=== PATIENT | female | born 1985 | race American Indian/Alaskan Native ===

== ENCOUNTER 2016-07-27 | Emergency (ER) | payer SELFPAY ==
[2016-07-27 00:01] VITALS: BMI 27.4
[2016-07-27 00:37] VITALS: RESP 18; TEMP 98.4
--- NOTE | 2016-07-27 01:42 | CT ---
EXAM: CT Head Without Intravenous Contrast CLINICAL HISTORY: 30 years old, female; Pain; Headache; Headache not specified TECHNIQUE: Axial computed tomography images of the head/brain without intravenous contrast. This CT exam was performed using one or more of the following dose reduction techniques: automated exposure control, adjustment of the mA and/or kV according to patient size, and/or use of iterative reconstruction technique. COMPARISON: No relevant prior studies available. FINDINGS: Brain: No intracranial hemorrhage. No mass. No edema. Ventricles: No hydrocephalus. Bones/joints: No acute fracture. Soft tissues: RIGHT parietal soft tissue swelling/irregularity. Sinuses: No acute sinusitis. Mastoid air cells: No mastoid effusion. Orbits: Unremarkable as visualized. Nasopharynx: Mildly prominent adenoids. IMPRESSION: 1. No intracranial hemorrhage. 2. Incidental/non-acute findings are described above.
--- NOTE | 2016-07-27 02:34 | ED PDOC ---
Arrival/HPI - General Historian: Patient <Gogo Carranza - Last Filed: 07/27/16 02:19> <Jhonatan Pabon - Last Filed: 07/27/16 04:14> - General Chief Complaint: Trauma Time Seen by Provider: 07/27/16 00:28 - History of Present Illness Narrative History of Present Illness (Text): 07/27/16 03:56 30-year-old female presents today with head injury and laceration to the scalp status post fall. Patient admits to having some drinks today states she tripped and fell and hit the back of her head. She is unsure if there was loss of consciousness. She denies chest pain or shortness of breath. Denies neck or back pain. No abdominal pain. Denies numbness weakness or tingling in the extremities. Denies any pain in the ankles or knees. No vomiting or diarrhea. Unsure of her last tetanus shot. No other complaints (Gogo Carranza) Past Medical History - Provider Review Nursing Documentation Reviewed: Yes - Travel History Have you recently traveled outside [place] w/in the past 3 mons?: No - Infectious Disease Hx of Infectious Diseases: None - Tetanus Immunization Tetanus Immunization: Unknown - Psychiatric Hx Psychophysiologic Disorder: No Hx Anxiety: No Hx Bipolar Disorder: No Hx Depression: No Hx Emotional Abuse: No Hx Hallucinations: No Hx Panic Disorder: No Hx Post Traumatic Stress Disorder: No Hx Psychosis: No Hx Physical Abuse: No Hx Schizophrenia: No Hx Sexual Abuse: No Hx Substance Use: Yes - Surgical History Hx Dilation and Curettage: Yes - Anesthesia Hx Anesthesia: Yes Hx Anesthesia Reactions: No Hx Malignant Hyperthermia: No - Suicidal Assessment Feels Threatened In Home Enviroment: No <Gogo Carranza - Last Filed: 07/27/16 02:19> Family/Social History - Physician Review Nursing Documentation Reviewed: Yes Family/Social History: Unknown Family HX Smoking Status: Heavy Smoker > 10 Cigarettes Daily Hx Alcohol Use: Yes Frequency of alcohol use: Few days per week Hx Substance Use: Yes Substance used: marijuana Hx Substance Use Treatment: No <Gogo Carranza - Last Filed: 07/27/16 02:19> Allergies/Home Meds <Gogo Carranza - Last Filed: 07/27/16 02:19> <Jhonatan Pabon - Last Filed: 07/27/16 04:14> Allergies/Adverse Reactions: Allergies Penicillins Allergy (Verified 05/19/16 14:51) ANAPHYLAXIS Home Medications: Home Meds Medication Instructions Recorded Confirmed No Known Home Med [No Known Home 04/19/14 07/27/16 Med] No Known Home Med 05/19/16 07/27/16 Review of Systems - Review of Systems Constitutional: absent: Fatigue, Fevers Eyes: absent: Vision Changes ENT: absent: Sinus Congestion Respiratory: absent: SOB, Cough Cardiovascular: absent: Chest Pain, Palpitations Gastrointestinal: absent: Abdominal Pain, Nausea, Vomiting Genitourinary Female: absent: Dysuria Musculoskeletal: absent: Arthralgias, Back Pain, Neck Pain Skin: Laceration (scalp laceration) Neurological: Headache. absent: Dizziness Psychiatric: absent: Anxiety, Depression <JakeiaGogo T - Last Filed: 07/27/16 02:19> Physical Exam Vital Signs Reviewed: Yes Temperature: Afebrile Blood Pressure: Normal Pulse: Regular Respiratory Rate: Normal Appearance: Positive for: Well-Appearing, Non-Toxic, Comfortable Pain Distress: None Mental Status: Positive for: Alert and Oriented X 3 - Systems Exam Head: Present: Tenderness, Swelling, Laceration (right parietal scalp; large 6cm laceration + minimal bleeding noted. ), Other (no facial tenderness, no edema, no erythema. no crepitus) Pupils: Present: PERRL Extroacular Muscles: Present: EOMI Conjunctiva: Present: Normal Mouth: Present: Moist Mucous Membranes. No: Normal Teeth (poor dentition) Pharnyx: Present: Normal Nose (External): Present: Atraumatic Nose (Internal): Present: Normal Inspection. No: Septal Hematoma Neck: Present: Normal Range of Motion, Trachea Midline. No: MIDLINE TENDERNESS , Paraspinal Tenderness Respiratory/Chest: Present: Clear to Auscultation, Good Air Exchange. No: Respiratory Distress, Accessory Muscle Use Cardiovascular: Present: Regular Rate and Rhythm Abdomen: Present: Normal Bowel Sounds. No: Tenderness, Distention, Peritoneal Signs, Rebound, Guarding Back: Present: Normal Inspection. No: Midline Tenderness, Paraspinal Tenderness Upper Extremity: Present: Normal Inspection, Normal ROM. No: Tenderness, Swelling Lower Extremity: Present: Normal Inspection, Normal ROM. No: Tenderness, Swelling, Erythema, Deformity Neurological: Present: GCS=15, Speech Normal Skin: Present: Warm, Dry, Normal Color Psychiatric: Present: Alert, Oriented x 3 <Gogo Carranza - Last Filed: 07/27/16 02:19> Medical Decision Making <Gogo Carranza - Last Filed: 07/27/16 02:19> <Jhonatan Pabon - Last Filed: 07/27/16 04:14> ED Course and Treatment: 07/27/16 03:59 30yr old female presents today with scalp laceration s/p fall. admits to drinking. c/o only of laceration and headache. hcg; negative tetanus updated. tylenol po ct head; FINDINGS: Brain: No intracranial hemorrhage. No mass. No edema. Ventricles: No hydrocephalus. Bones/joints: No acute fracture. Soft tissues: RIGHT parietal soft tissue swelling/irregularity. Sinuses: No acute sinusitis. Mastoid air cells: No mastoid effusion. Orbits: Unremarkable as visualized. Nasopharynx: Mildly prominent adenoids. IMPRESSION: 1. No intracranial hemorrhage. 2. Incidental/non-acute findings are described above wound irrigated well with copious amounts of NS using high pressure irrigation. laceration repair; 11 giulia placed. bacitracin applied. motrin added PO. pt reassessment; pt non toxic well appearing; no distress. pt was observed in ER for 4 hours. ambulating with steady gait, alert and oriented. clinically sober. will d/c home to f/u with PMD. advised return in 10 days for staple removal. advised immediate return if symptoms worsen,persist or if new symptoms develop. Patient verbalizes understanding of discharge instructions and need for immediate followup. all aspects of this case were discussed the attending of record. impression; head injury, scalp laceration Keep wounds clean and dry Apply bacitracin twice daily Follow-up with the primary care physician within the next 2 days Tylenol every 4 hours as needed for pain Return in 10 days for staple removal Return immediately if signs of infection develop: High fevers, increasing pain, increasing redness, increasing swelling, purulent discharge Return if any other concerning symptoms develop (Gogo Carranza) - RAD Interpretation Radiology Orders: 07/27/16 00:28 HEAD W/O CONTRAST [CT] Stat - Medication Orders Current Medication Orders: Discontinued Medications Acetaminophen (Tylenol 325mg Tab) 975 mg PO STAT STA Stop: 07/27/16 00:29 Last Admin: 07/27/16 00:33 Dose: 975 mg Acetaminophen (Tylenol 325mg Tab) Confirm Administered Dose 975 mg .ROUTE .STK- MED ONE Stop: 07/27/16 00:32 Last Admin: 07/27/16 03:42 Dose: Home Med (*Refrigerator Open) Confirm Administered Dose 1 unit XX .STK-MED ONE Stop: 07/27/16 03:56 Ibuprofen (Motrin Tab) 600 mg PO STAT STA Stop: 07/27/16 03:37 Last Admin: 07/27/16 03:42 Dose: 600 mg Lidocaine HCl (Lidocaine 1% (20ml)) Confirm Administered Dose 20 ml .ROUTE .STK- MED ONE Stop: 07/27/16 02:42 Last Admin: 07/27/16 03:42 Dose: 10 mg Tetanus/Reduced Diphtheria/Acell Pertussis (Boostrix Vaccine Inj) 0.5 ml IM .ONCE ONE Stop: 07/27/16 03:56 Last Admin: 07/27/16 03:59 Dose: 0.5 ml Procedure: Wound Repair - Procedure Procedure: Wound Repair: laceration, scalp - Consent Obtained Consent obtained: Verbal - Performed by Performed by: Mid-level Provider - Indications Indication(s):: Laceration - Location Location:: Scalp Shape:: Linear Dimensions Length cm: 6cm - Anesthetic Technique Local/Regional Anesthetic:: Lidocaine 1% (3cc) - Debris Debris:: None - Irrigated Irrigated with ml of normal saline: copious amounts of NS using high pressure irrigation - Complexity Complexity:: Simple (one layer) - Wound repair method Sutures:: # (11 giulia placed) - Complications Complications: none - Patient tolerated procedure Patient Tolerated Procedure:: Well <Gogo Carranza - Last Filed: 07/27/16 02:19> - PA / MANAGEMENT REP / Resident Statement / has reviewed & agrees with the documentation as recorded. <Jhonatan Pabon - Last Filed: 07/27/16 04:14> Disposition/Present on Arrival - Present on Arrival Any Indicators Present on Arrival: No History of DVT/PE: No History of Uncontrolled Diabetes: No Urinary Catheter: No History of Decub. Ulcer: No History Surgical Site Infection Following: None - Disposition Have Diagnosis and Disposition been Completed?: Yes Disposition Time: 03:50 Patient Plan: Discharge <Gogo Carranza Bong - Last Filed: 07/27/16 02:19> <Jhonatan Pabon - Last Filed: 07/27/16 04:14> - Disposition Diagnosis: Head injury, Scalp laceration Disposition: HOME/ ROUTINE Condition: GOOD Discharge Instructions (ExitCare): Laceration (ED), Head Injury (ED), Staple Care (ED) Additional Instructions: Keep wounds clean and dry Apply bacitracin twice daily Follow-up with the primary care physician within the next 2 days Tylenol every 4 hours as needed for pain Return in 10 days for staple removal Return immediately if signs of infection develop: High fevers, increasing pain, increasing redness, increasing swelling, purulent discharge Return if any other concerning symptoms develop Referrals: [facility] [Outside] - Follow up with primary Rosie Mayberry MD [Staff Provider] - Follow up with primary Forms: WORK NOTE
[2016-07-27] MEDS ORDERED: Lidocaine 1% Inj (20ml) ONE (02:41)
[2016-07-27] MEDS ORDERED: TDAP Vaccine 0.5 mL Syr IM ONE (03:55)
[2016-07-27 04:01] VITALS: BP 126/74; PULSE 82; O2SAT 99
== END 2016-07-27 04:13 | disposition home or self-care (01) ==
LOC: ED
DX: S01.01XA Laceration without foreign body of scalp, initial encounter (principal); W01.0XXA Fall on same level from slipping, tripping and stumbling without subsequent striking against object, initial encounter; Y92.89 Other specified places as the place of occurrence of the external cause; Z23 Encounter for immunization

== ENCOUNTER 2016-08-05 08:32 | Emergency (ER) | payer SELFPAY | END 2016-08-06 08:34 | disposition home or self-care (01) | LOC: ED 08:32 | DX: Z48.02 Encounter for removal of sutures (principal) ==

== ENCOUNTER 2016-10-31 01:44 | Emergency (ER) | payer SELFPAY ==
[2016-10-31 02:55] VITALS: RESP 18; O2SAT 100; BMI 24.7
--- NOTE | 2016-10-31 02:57 | ED PDOC ---
Arrival/HPI - General Time Seen by Provider: 10/31/16 02:47 Historian: Patient - History of Present Illness Narrative History of Present Illness (Text): 10/31/16 02:52 Leni Blevins is a 31 year old female who presents to the Emergency department complaining of right elbow/forearm pain. Patient states she was dancing and drinking alcohol 2 days ago when she slammed her right arm against a wall. Patient states she had been experiencing right elbow/forearm pain, worsening yesterday after she massaged the area. Patient denies any weakness/numbness/ tingling in the extremity, other trauma, or any other complaints. Time/Duration: < week (2 days) Symptom Onset: Gradual Symptom Course: Unchanged Activities at Onset: Light Context: Home Past Medical History - Provider Review Nursing Documentation Reviewed: Yes - Infectious Disease Hx of Infectious Diseases: None - Tetanus Immunization Tetanus Immunization: Unknown - Psychiatric Hx Psychophysiologic Disorder: No Hx Anxiety: No Hx Bipolar Disorder: No Hx Depression: No Hx Emotional Abuse: No Hx Hallucinations: No Hx Panic Disorder: No Hx Post Traumatic Stress Disorder: No Hx Psychosis: No Hx Physical Abuse: No Hx Schizophrenia: No Hx Sexual Abuse: No Hx Substance Use: Yes - Surgical History Hx Dilation and Curettage: Yes - Anesthesia Hx Anesthesia: Yes Hx Anesthesia Reactions: No Hx Malignant Hyperthermia: No - Suicidal Assessment Feels Threatened In Home Enviroment: No Family/Social History - Physician Review Nursing Documentation Reviewed: Yes Family/Social History: Unknown Family HX Smoking Status: Heavy Smoker > 10 Cigarettes Daily Hx Alcohol Use: Yes Hx Substance Use: Yes Substance used: marijuana Hx Substance Use Treatment: No Allergies/Home Meds Allergies/Adverse Reactions: Allergies Penicillins Allergy (Verified 10/31/16 05:24) ANAPHYLAXIS Review of Systems - Physician Review All systems were reviewed & negative as marked: Yes - Review of Systems Constitutional: Normal. absent: Fevers Eyes: Normal ENT: Normal Respiratory: Normal. absent: SOB, Cough Cardiovascular: Normal. absent: Chest Pain Gastrointestinal: Normal. absent: Abdominal Pain, Diarrhea, Nausea, Vomiting Genitourinary Female: Normal. absent: Dysuria, Frequency, Hematuria, Urine Output Changes Musculoskeletal: Arthralgias (+right forearm/elbow pain) Skin: Normal Neurological: Normal Endocrine: Normal Hemo/Lymphatic: Normal Psychiatric: Normal Physical Exam Vital Signs Reviewed: Yes Vital Signs Temp Pulse Resp BP Pulse Ox 10/31/16 05:43 98.9 F 67 18 101/65 100 10/31/16 02:54 99.2 F 71 18 115/75 100 Temperature: Afebrile Blood Pressure: Normal Pulse: Regular Respiratory Rate: Normal Appearance: Positive for: Well-Appearing, Non-Toxic, Comfortable Pain Distress: None Mental Status: Positive for: Alert and Oriented X 3 - Systems Exam Head: Present: Atraumatic, Normocephalic Pupils: Present: PERRL Extroacular Muscles: Present: EOMI Conjunctiva: Present: Normal Mouth: Present: Moist Mucous Membranes Neck: Present: Normal Range of Motion Respiratory/Chest: Present: Clear to Auscultation, Good Air Exchange. No: Respiratory Distress, Accessory Muscle Use Cardiovascular: Present: Regular Rate and Rhythm, Normal S1, S2. No: Murmurs Abdomen: Present: Normal Bowel Sounds. No: Tenderness, Distention, Peritoneal Signs Upper Extremity: Present: Tenderness (Tenderness to right posterior elbow/ proximal right forearm). No: Cyanosis, Edema Neurological: Present: GCS=15, CN II-XII Intact, Speech Normal Skin: Present: Warm, Dry, Normal Color. No: Rashes Psychiatric: Present: Alert, Oriented x 3, Normal Insight, Normal Concentration Medical Decision Making ED Course and Treatment: 10/31/16 02:52 Impression: 31 year old female complaining of right elbow/forearm pain s/p injury 2 days prior. Differential Diagnosis included but are not limited to: sprain vs. fracture vs. contusion Plan: -- XR Right Elbow -- Reassess and disposition Progress Notes: 10/31/16 05:29 Reviewed radiology, XR Right Elbow shows avulsion fracture of the right olecranon process. 10/31/16 05:38 On reevaluation the patient feels better and is in no acute distress. I have discussed the results and plan with the patient, who expresses understanding. Patient given the opportunity to ask question, all questions were answered and there is agreement with the plan to discharge the patient home. Patient is stable for discharge. Patient was instructed to follow up with physician/ orthopedics/clinic in 1-2 days or return if symptoms persist/worsen or new concerning symptoms arise. - RAD Interpretation Radiology Orders: 10/31/16 02:58 ELBOW RIGHT 3 VIEWS ROUTINE [RAD] Stat - Medication Orders Current Medication Orders: Discontinued Medications Ibuprofen (Motrin Tab) 800 mg PO STAT STA Stop: 10/31/16 04:38 Last Admin: 10/31/16 04:49 Dose: 800 mg Oxycodone/Acetaminophen (Percocet 5/325 Mg Tab) 1 tab PO STAT STA Stop: 10/31/16 05:31 Last Admin: 10/31/16 05:40 Dose: 1 tab - Scribe Statement The provider has reviewed the documentation as recorded by the Kiana Lowery Provider Scribe Attestation: All medical record entries made by the Scribe were at my direction and personally dictated by me. I have reviewed the chart and agree that the record accurately reflects my personal performance of the history, physical exam, medical decision making, and the department course for this patient. I have also personally directed, reviewed, and agree with the discharge instructions and disposition. Disposition/Present on Arrival - Present on Arrival Any Indicators Present on Arrival: No History of DVT/PE: No History of Uncontrolled Diabetes: No Urinary Catheter: No History Surgical Site Infection Following: None - Disposition Have Diagnosis and Disposition been Completed?: Yes Diagnosis: Elbow fracture, right Disposition: HOME/ ROUTINE Disposition Time: 05:38 Patient Plan: Discharge Patient Problems: Current Active Problems Problem Status Onset Elbow fracture, right Acute Condition: STABLE Discharge Instructions (ExitCare): Elbow Fracture in Adults (ED) Additional Instructions: Maintain splint/sling/Meds as prescribed/FOLLOW UP WITH THE ORTHOPEDIST THIS WEEK Prescriptions: Tramadol HCl [Ultram] 50 mg PO Q6 PRN #16 tab PRN Reason: Pain, Moderate (4-7) Referrals: Porfirio Wang MD [Staff Provider] - Follow up with primary [facility] [place] [Outside] - Follow up with primary
[2016-10-31] MEDS ORDERED: Oxycodone/Acetaminophen 5/325 mg Tab PO STA (05:30)
[2016-10-31 05:44] VITALS: BP 101/65; PULSE 67; TEMP 98.9
--- NOTE | 2016-10-31 12:04 | RAD ---
PROCEDURE: Radiographs of the right elbow. HISTORY: Unspecified injury. Left arm pain COMPARISON: No prior. FINDINGS: BONES: Normal. No fracture. JOINTS: Normal. No osteoarthritis. SOFT TISSUES: Soft tissue swelling at and below the level of the elbow. JOINT EFFUSION: None. OTHER FINDINGS: None. IMPRESSION: Soft tissue swelling without acute articular or osseous abnormality. No preliminary report provided by emergency department personnel.
== END 2016-10-31 06:20 | disposition home or self-care (01) ==
LOC: ED 01:44
DX: S42.401A Unspecified fracture of lower end of right humerus, initial encounter for closed fracture (principal); W22.01XA Walked into wall, initial encounter; Y93.41 Activity, dancing; Y92.89 Other specified places as the place of occurrence of the external cause

== ENCOUNTER 2018-05-04 16:35 | Emergency (ER) | payer MEDICAID ==
[2018-05-04 17:00] VITALS: RESP 18; BMI 25.6
[2018-05-04] MEDS ORDERED: Sodium Chloride 0.9% 1,000 ML IV STA (17:00)
[2018-05-04 17:26] LABS: PH,URINE 6.5 (4.7-8.0); URINE BILIRUBIN NEGATIVE (NEGATIVE); URINE BLOOD LARGE (NEGATIVE); URINE GLUCOSE (UA) NEGATIVE (NEGATIVE); URINE LEUKOCYTE ESTERASE NEGATIVE Leu/uL (NEGATIVE); URINE PROTEIN NEGATIVE mg/dL (<30 mg/dL); URINE UROBILINOGEN 0.2 E.U./dL (<1 E.U./dL)
[2018-05-04 17:27] LABS: URINE APPEARANCE CLEAR (CLEAR); URINE COLOR YELLOW (YELLOW)
[2018-05-04 17:30] LABS: URINE BACTERIA MANY /hpf; URINE RBC 25 - 30 /hpf (0-2)
[2018-05-04 17:31] LABS: URINE AMORPHOUS SEDIMENT FEW /hpf; URINE FINE GRANULAR CAST 0 - 2 /hpf
[2018-05-04 17:41] LABS: BASO # 0.02 K/mm3 (0.0-2.0); BASO % 0.4 % (0.0-3.0); EOS % 0.7 % (1.5-5.0); HEMOGLOBIN 12.6 g/dL (12.0-16.0); LYMPH % 35.7 % (22.0-35.0); MEAN CELL VOLUME 88.8 fl (80.0-105.0); MEAN CORPUSCULAR HEMOGLOBIN 29.4 pg (25.0-35.0); MEAN CORPUSCULAR HGB CONC 33.2 g/dl (31.0-37.0); MEAN PLATELET VOLUME 8.9 fl (7.0-11.0); MONO # 0.3 (0.1-0.6); MONO % 4.4 % (1.0-6.0); RBC 4.28 10^6/uL (3.5-6.1); RED CELL DISTRIBUTION WIDTH 17.6 % (11.5-14.5); WHITE BLOOD COUNT 5.7 10^3/uL (4.5-11.0)
[2018-05-04 17:49] LABS: INR 1.23; PARTIAL THROMBOPLASTIN TIME 34.8 Seconds (26.9-38.3); PROTHROMBIN TIME 13.6 SECONDS (9.4-12.5)
[2018-05-04 17:53] LABS: ALB/GLOB RATIO 1.3 (1.1-1.8); ALBUMIN 4.8 g/dL (3.0-4.8); ALT/SGPT 151 U/L (7-56); AST/SGOT 111 U/L (14-36); BLOOD UREA NITROGEN 6 mg/dL (7-21); CALCIUM 8.9 mg/dL (8.4-10.5); GFR NON-AFRICAN AMERICAN > 60; LIPASE 34 U/L (23-300)
--- NOTE | 2018-05-04 18:59 | ED PDOC ---
Arrival/HPI - General Chief Complaint: GI Problem Time Seen by Provider: 05/04/18 16:46 Historian: Patient - History of Present Illness Narrative History of Present Illness (Text): 05/04/18 18:52 32yo female bib EMS with pmhx of migraine headache present with complaint of nausea, nonbloody/bilious vomiting, diarrhea since this morning. States the vomiting and diarrhea resolved and she is still having diffuse crampy abdominal pain. she also report intermittent headache x 5month. States she is on unknown medication at home for the headache. Denies fever, chills, neck pain, nuchal ridgity, back pain, melena, hematememsis, urinary symptoms, focal weakness, sick contact/travel, any other complaint. Past Medical History - Provider Review Nursing Documentation Reviewed: Yes - Infectious Disease Hx of Infectious Diseases: None - Tetanus Immunization Tetanus Immunization: Unknown - Reproductive Currently : No - Cardiac Hx Cardiac Disorders: No Hx Hypertension: No - Psychiatric Hx Depression: No Hx Substance Use: Yes - Surgical History Hx Dilation and Curettage: Yes - Anesthesia Hx Anesthesia: Yes Hx Anesthesia Reactions: No Hx Malignant Hyperthermia: No - Suicidal Assessment Feels Threatened In Home Enviroment: No Family/Social History - Physician Review Nursing Documentation Reviewed: Yes Family/Social History: Unknown Family HX Smoking Status: Light Smoker < 10 Cigarettes Daily Hx Alcohol Use: Yes Frequency of alcohol use: Socially Hx Substance Use: Yes Substance used: marijuana Hx Substance Use Treatment: No Allergies/Home Meds Allergies/Adverse Reactions: Allergies Penicillins Allergy (Verified 05/04/18 16:39) ANAPHYLAXIS Review of Systems - Physician Review All systems were reviewed & negative as marked: Yes - Review of Systems Constitutional: Normal Eyes: Normal ENT: Normal Respiratory: Normal Cardiovascular: Normal Gastrointestinal: Abdominal Pain, Diarrhea, Nausea, Vomiting. absent: Constipation, Hematochezia, Hematemesis Genitourinary Female: Normal Musculoskeletal: Normal Skin: Normal Neurological: Headache. absent: Dizziness, Focal Weakness, Gait Changes, Speech Changes Endocrine: Normal Hemo/Lymphatic: Normal Psychiatric: Normal Physical Exam Vital Signs Reviewed: Yes Vital Signs Temp Pulse Resp BP Pulse Ox 05/04/18 16:43 98.2 F 77 18 109/71 99 Temperature: Afebrile Blood Pressure: Normal Pulse: Regular Respiratory Rate: Normal Appearance: Positive for: Well-Appearing, Non-Toxic, Comfortable Pain Distress: None Mental Status: Positive for: Alert and Oriented X 3 - Systems Exam Head: Present: Atraumatic, Normocephalic Pupils: Present: PERRL Extroacular Muscles: Present: EOMI Conjunctiva: Present: Normal Mouth: Present: Moist Mucous Membranes Neck: Present: Normal Range of Motion Respiratory/Chest: Present: Clear to Auscultation, Good Air Exchange. No: Respiratory Distress, Accessory Muscle Use Cardiovascular: Present: Regular Rate and Rhythm, Normal S1, S2. No: Murmurs Abdomen: Present: Tenderness (Diffuse tenderness), Normal Bowel Sounds, Guarding (Voluntary), Other (soft). No: Distention, Peritoneal Signs, Rebound, McBurney's Point Tender, Rovsing's Sign Present Back: Present: Normal Inspection Upper Extremity: Present: Normal Inspection. No: Cyanosis, Edema Lower Extremity: Present: Normal Inspection. No: Edema Neurological: Present: GCS=15, CN II-XII Intact, Speech Normal, Motor Func Grossly Intact, Normal Sensory Function, Normal Cerebellar Funct, Norm Deep Tendon Reflexes, Gait Normal, Memory Normal, Other (No focal neurological deficit) Skin: Present: Warm, Dry, Normal Color. No: Rashes Psychiatric: Present: Alert, Oriented x 3, Normal Insight, Normal Concentration Medical Decision Making ED Course and Treatment: 05/04/18 19:25 Pt brought to ED by EMS for abdominal pain, N/V/D, headache . She appeared uncomfortable secondary to abdominal pain in ED. Labs 1L NS, pepcid, Zofran reassess Labs was reviewed with no Leukocytosis. Elevated LFT was noted. Blood was noted in the UA and she states she is currently having her monthly period. She noted resolution of her abdominal pain on re evaluation and requested to medication for her headache. Her neck is supple in ED. She noted history of similar headache in the past and on unknown medication at home for it. All result was DW the pt and on re evaluation s/p toradol she notes improvement of her headache she will be DC home iwth a rx of antitussive and pepcid for viral enteritis. Advised to follow BLAND diet and f/u with her PMD. TRT ED for any new or worsening symptoms - Lab Interpretations Lab Results: PT 13.6 SECONDS (9.4-12.5) H 05/04/18 17:35 INR 1.23 05/04/18 17:35 APTT 34.8 Seconds (26.9-38.3) 05/04/18 17:35 Total Bilirubin 0.5 mg/dL (0.2-1.3) 05/04/18 17:35 AST 111 U/L (14-36) H D 05/04/18 17:35 ALT 151 U/L (7-56) H 05/04/18 17:35 Alkaline Phosphatase 101 U/L (38-126) 05/04/18 17:35 Total Protein 8.5 g/dL (5.8-8.3) H 05/04/18 17:35 Albumin 4.8 g/dL (3.0-4.8) 05/04/18 17:35 Globulin 3.7 gm/dL 05/04/18 17:35 Albumin/Globulin Ratio 1.3 (1.1-1.8) 05/04/18 17:35 Lipase 34 U/L (23-300) 05/04/18 17:35 Urine Color Yellow (YELLOW) 05/04/18 17:13 Urine Appearance Clear (CLEAR) 05/04/18 17:13 Urine pH 6.5 (4.7-8.0) 05/04/18 17:13 Ur Specific Stuart 1.025 (1.005-1.035) 05/04/18 17:13 Urine Protein Negative mg/dL (<30 mg/dL) 05/04/18 17:13 Urine Glucose (UA) Negative mg/dL (NEGATIVE) 05/04/18 17:13 Urine Ketones Negative mg/dL (NEGATIVE) 05/04/18 17:13 Urine Blood Large (NEGATIVE) H 05/04/18 17:13 Urine Nitrate Negative (NEGATIVE) 05/04/18 17:13 Urine Bilirubin Negative (NEGATIVE) 05/04/18 17:13 Urine Urobilinogen 0.2 E.U./dL (<1 E.U./dL) 05/04/18 17:13 Ur Leukocyte Esterase Negative Tess/uL (NEGATIVE) 05/04/18 17:13 Urine RBC 25 - 30 /hpf (0-2) H 05/04/18 17:13 Urine WBC 1 - 3 /hpf (0-6) 05/04/18 17:13 Ur Epithelial Cells 6 - 8 /hpf (0-5) H 05/04/18 17:13 Amorphous Sediment Few /hpf (NONE) 05/04/18 17:13 Urine Bacteria Many /hpf (NONE) 05/04/18 17:13 Fine Granular Casts 0 - 2 /hpf (NONE) 05/04/18 17:13 Urine Other Uyeast /hpf 05/04/18 17:13 - Medication Orders Current Medication Orders: Ketorolac Tromethamine (Toradol) 30 mg IVP STAT STA Stop: 05/04/18 18:50 Discontinued Medications Famotidine (Pepcid) 20 mg IVP STAT STA Stop: 05/04/18 17:01 Last Admin: 05/04/18 17:32 Dose: 20 mg IVP Administration Document 05/04/18 17:32 KV (Rec: 05/04/18 17:32 KV [facility] [place]-[id number]) Charges for Administration # of IVP Administrations 1 Sodium Chloride (Sodium Chloride 0.9%) 1,000 mls @ 1,000 mls/hr IV .Q1H STA Stop: 05/04/18 17:59 Last Admin: 05/04/18 17:25 Dose: 1,000 mls/hr eMAR Start Stop Document 05/04/18 17:25 KV (Rec: 05/04/18 17:32 KV [email or web address]) Intravenous Solution Start Date 05/04/18 Start Time 17:25 Ondansetron HCl (Zofran Inj) 4 mg IVP STAT STA Stop: 05/04/18 17:01 Last Admin: 05/04/18 17:32 Dose: 4 mg IVP Administration Document 05/04/18 17:32 KV (Rec: 05/04/18 17:32 KV [email or web address]) Charges for Administration # of IVP Administrations 1 Disposition/Present on Arrival - Present on Arrival Any Indicators Present on Arrival: No History of DVT/PE: No History of Uncontrolled Diabetes: No Urinary Catheter: No History of Decub. Ulcer: No History Surgical Site Infection Following: None - Disposition Have Diagnosis and Disposition been Completed?: Yes Diagnosis: Abdominal pain, Headache Disposition: HOME/ ROUTINE Disposition Time: 19:05 Patient Plan: Discharge Patient Problems: Current Active Problems Problem Status Onset Abdominal pain Acute Headache Acute Condition: STABLE Discharge Instructions (ExitCare): Acute Abdomen (Belly Pain), Headache, Adult (DC) Additional Instructions: Follow BLAND diet Follow up with your Doctor Return to ED for any new or worsening symptoms Prescriptions: Famotidine [Pepcid] 40 mg PO DAILY #10 tab Ondansetron ODT [Zofran ODT] 4 mg PO Q6 #6 odt Referrals: Dom Duran MD [Primary Care Provider] - Follow up with primary Forms: [employer] (Czech)
[2018-05-04 20:27] VITALS: BP 126/76; PULSE 75; TEMP 98.1; O2SAT 97
== END 2018-05-04 20:25 | disposition home or self-care (01) ==
LOC: ED 16:35
DX: R10.9 Unspecified abdominal pain (principal); R51 Headache
CPT/HCPCS: 80053; 81001; 81025; 83690; 83735; 85025; 85610; 85730; 96374; 96375; 99283; J1885; J2405; J7030